=== PATIENT | male | born 1945 | race Caucasian/White ===

== ENCOUNTER 2017-06-22 09:48 | Inpatient (IN) | payer MEDICARE, SELFPAY ==
[2017-06-22] VITALS (11 sets, daily range): BP systolic 120–163; BP diastolic 64–96; PULSE 103–124; RESP 15–25; TEMP 36.9–37.7; O2SAT 95–97; BMI 28.1; BMI 30.1
--- NOTE | 2017-06-22 10:12 | CT_ITS ---
STUDY: CT ABDOMEN AND PELVIS WITH CONTRAST REASON FOR EXAM: Male, 71 years old. Suprapubic swelling, difficulty voiding, diarrhea RADIATION DOSAGE (If Supplied By Facility): CTDIvol = ( 20.85 ) mGy, DLP = ( 2991.93 ) mGycm TECHNIQUE: Transaxial images were obtained from the dome of the diaphragm to the symphysis pubis with oral contrast. 100mL ml of Isovue 300 contrast was administered. Sagittal and coronal images were reconstructed. Individualized dose optimization techniques were used for this CT. COMPARISON: None. FINDINGS: The visualized lung bases are unremarkable. The visualized portions of the heart are within normal limits. There is decreased attenuation of the liver consistent with steatosis. Normal gallbladder and extrahepatic biliary system. There is mild splenomegaly. Normal pancreas. Normal bilateral adrenal glands. Normal right kidney. Normal left kidney. There are bilateral extrarenal pelves. Normal visualized stomach. Normal small intestine. There is thickening to the wall of the rectum. The appendix is visualized and appears normal. There is diffuse atherosclerotic calcification of the abdominal aorta, without a demonstrated aneurysm. Normal inferior vena cava. There is retroperitoneal lymphadenopathy with enlarged nodes greater than 10-15mm in the short axis. There is adenopathy along both iliac chains extending into the inguinal regions. The bladder wall is thickened. There is a calcification within the wall of the bladder on the left side. There are small bladder calculi. There is a small umbilical hernia containing fat. There are diffuse degenerative changes of the visualized lumbar spine. There is some thickening to the soft tissues of the scrotum. CT/Abdomen/Pelvis WITH Contrast IMPRESSION: There is pelvic, inguinal, and retroperitoneal adenopathy. Underlying malignancy cannot be excluded. Tissue sampling may be beneficial. The bladder wall is thickened. There is thickening of the rectal wall. This can be correlated with endoscopy. No bowel obstruction or acute renal pathology. Electronically Signed: Luis E Hoffman DO at 12:49 EST Tel , Service support ,
--- NOTE | 2017-06-22 10:24 | ED.VISSUMM ---
- ER Visit Summary Date of Service: 06/22/17 Chief Complaint: Abdominal pain History of Present Illness: The patient is a 71 M with no primary care physician. He reports that he has suprapubic pain and rash that began approximately 1 week ago. He describes the pain as tender is 5 out of 10 currently and 8 out of 10 at worst. It is increased with movement. He denies any nausea or vomiting. Reports he has had diarrhea approximately 4 times a day for the past month. No blood in his stools or black tarry stools. He has not been on antibiotics recently, does not drink well water, and has not been camping or out of the country. On review of systems patient complains subjective fever, chills, and cold sweats. He has a chronic cough that is unchanged. He has had dysuria without frequency and feels as though he is emptying his bladder well. Physical Examination: Vitals: 98.5, 163/96, 124, 15, 88% on room air which is hypoxic. General: Well-nourished and well-developed. Head: Normocephalic atraumatic. Neck: Supple, no lymphadenopathy. No JVD. Nontender. Cardiovascular: Regular rate and rhythm. No murmurs. Respiratory: No respiratory distress. Clear to auscultation bilaterally. Abdominal: Soft, moderate suprapubic tenderness to palpation, nondistended, normal bowel sounds. No guarding, rebound, or peritoneal signs. Erythema in the suprapubic area that extends over the scrotum. This is tender to palpation Back: Nontender. Extremities: Nontender, no edema. Skin: Normal color, no rash. Neurologic: Alert and oriented ?3. Cranial nerves II through XII are intact. Normal strength and sensation. Psych: Normal affect. Test Results: Chest x-ray is normal. CT the abdomen pelvis. IV contrast shows a normal appendix. There is thickening of the wall of the rectum and retroperitoneal adenopathy. There is not a comment about a suprapubic abscess or cellulitis. CBC is remarkable for a white count of 32.2 with 92 segmented neutrophils and 4 lymphocytes. H&H is 11.6 and 36.3. Chem-7 is marked for sodium 134, chloride of 97, glucose 127. Lactic acid is 1.8. UA has 25-50 white blood cells and 1+ bacteria. Emergency Department Course and Treatment: Patient had an IV placed. He was given a liter bolus of normal saline. He was given morphine and Zofran IV. He was given vancomycin and Zosyn IV. Treatment Plan: Patient was discussed with Dr. Macdonald. He will be admitted to the hospital for further relation and treatment. Disposition: Admitted in serious condition. Impression: 1. Abdominal wall cellulitis. 2. UTI. 3. Sepsis. 4. Hypoxia. This note was generated with [employer] dictation software. It may contain incorrect words, spelling, and punctuation that were not noted in review of the chart prior to signing ED Disposition - Plan for ED Patient: Disposition: Acute Care [facility] Chief Complaint: Diarrhea
[2017-06-22] MEDS: Ondansetron 4 MG/2 ML Vial IV (10:29)
[2017-06-22] MEDS: 0.9% Normal Saline 1,000 ML 1000 ML IV (10:29)
--- NOTE | 2017-06-22 10:39 | RAD_ITS ---
STUDY: X-RAY CHEST REASON FOR EXAM: Male, 71 years old. Cough. Lower abdominal pain. TECHNIQUE: Single AP portable view of the chest. COMPARISON: None. FINDINGS: The lungs are clear and expanded. There is no demonstrated pleural abnormality. Normal size heart. Normal mediastinum and seth. Normal visualized pulmonary arteries. Normal visualized aortic arch and descending thoracic aorta. Normal visualized thoracic spine. Normal visualized ribs, clavicles, and shoulders. There is no demonstrated abnormality of the visualized soft tissue structures of the upper abdomen. RAD/Chest 1 View (Portable) IMPRESSION: Normal x-ray examination of the chest. Electronically Signed: Gasper Saavedra MD at 11:09 EST Tel [phone], Service support ,
[2017-06-22 10:50] LABS: Anion Gap 8 (5-15); BUN 14 mg/dL (7-18); BUN/Creat Ratio 14.6 RATIO (10-20); Calcium,Total 8.5 mg/dL (8.5-10.1); Chloride 97 mmol/L (98-107); Creatinine, Serum 0.96 mg/dL (0.70-1.30); EST Glomerular Filtration Rate 82 mL/min (>60); Est Glom Filt Rate - Afr Amer 100 mL/min (>60); Estimated Creatinine Clearance 73.93 ml/min; Glucose 127 mg/dL (74-106); Potassium 3.6 mmol/L (3.5-5.1); Sodium Level 134 mmol/L (136-145)
[2017-06-22 10:51] LABS: Absolute Lymphocyte Count 1.29 X10^3/ul (0.83-4.51); Absolute Neutrophil Count 29.5 X10^3/uL (2.0-7.7); Basophil# 0.02 X10^3/uL; Basophil% 0.1 % (0-1); Hematocrit 36.3 % (40-54); Hemoglobin 11.6 g/dl (13.0-16.5); Lymphocyte # 1.29 X10^3/ul (4.0); Mean Corpuscular Hgb 25.8 pg (27.0-32.0); Mean Corpuscular Volume 80.8 fL (80-94); Mean Platelet Vol. 8.9 fl (6.2-12.0); Neutrophil # 29.49 X10^3/uL (2.7-7.7); Neutrophil % 91.5 % (47-70); Platelet Count 374 K/mm3 (150-450); RBC Distribution Width CV 14.3 % (11.6-14.6); RBC Distribution Width SD 41.6 fl (35.1-43.9); Red Blood Count 4.49 M/mm3 (4.6-6.2)
[2017-06-22 10:52] LABS: Differential Indicated SCAN CRITERIA MET; POSITIVE COUNT YES; POSITIVE DIFFERENTIAL YES; POSITIVE MORPHOLOGY NO
[2017-06-22 10:55] LABS: White Blood Count 32.2 K/mm3 (4.4-11.0)
--- NOTE | 2017-06-22 10:56 | ED.RN ---
pt has redness warmth and firmness in groin area. areas spreads from leg to leg and under scrotum. per pt difficulty urinating at times
--- NOTE | 2017-06-22 10:56 | ED.RN ---
LAB CALL WITH CRITICAL WBC VALUE 32.2. VERBALLY COMMUNICATED TO MIRNA QUIROZ AND DR. WANG.
[2017-06-22 10:59] LABS: Lactic Acid 1.8 mmol/L (0.4-2.0)
[2017-06-22 11:14] LABS: Differential Comment SCANNED
[2017-06-22 12:06] LABS: Mucous, Urine 0 SEEN /hpf (<or=2+)
[2017-06-22 12:09] LABS: Color, Urine Yellow (Yellow); Glucose, Dipstick Normal (Normal); Ketone-Dipstick Negative (Negative); Leukocyte Esterase-Dipstick 500 /ul (Negative); Nitrite-Dipstick Negative (Negative); Occult Blood-Urine 25 /ul (Negative); Protein-Dipstick 30 mg/dl (Negative); Urine Bilirubin Dipstick Negative (Negative); Urine Clarity Sl. Cloudy (Clear); Urine Urobilinogen 1 mg/dl (Normal)
[2017-06-22 12:23] LABS: Bacteria 1+ /hpf (None Seen); Red Blood Cells-Urine 0-5 SEEN /hpf (0-5); Squamous Epithelial Cells - UA 0-5 SEEN /hpf (0-5); White Blood Cells 25-50 SEEN /hpf (0-5)
--- NOTE | 2017-06-22 13:20 | ED.RN ---
john called and said that dr bradley will be down to see pt he just got here
--- NOTE | 2017-06-22 14:17 | PCM.HP.STD ---
Problem List (1) Lower abdominal pelvic wall cellulitis Status: Acute (2) Rectal prolapse Status: Acute (3) Altered bowel habits Status: Acute (4) Hypertension Status: Chronic Qualifiers: Hypertension type: essential hypertension Qualified Code(s): I10 - Essential (primary) hypertension Comment: Undiagnosed History of Present Illness Date of Admission: 06/22/17 Chief Complaint: Lower abdominal wall cellulitis and alteration of bowel habit The patient is a 71 year old M with no known significant past medical history, no PCP or recent Dr. follow-up came to ER with lower abdominal wall redness, pain, alteration of bowel habit. The patient has history of constipation and diarrhea for more than 1 month. For last 3- 4 days he started having swelling of the groin region including swelling of scrotum and penis and redness started spreading to the lower abdominal wall and pelvic wall. He denies GI bleed. He further had fever, chills or diaphoresis. In the ER he was found to have tachycardia, hypoxia, tachypnea and hypoxia, pulse ox 95% on 2 L of oxygen. Patient has leukocytosis with left shift. The patient had CT abdomen which shows thickened bladder wall, thickening of rectal wall but no bowel obstruction or acute renal pathology. [] Past Medical History Past Medical History (Chronic Problems): Chronic Problems Hypertension (Chronic) Undiagnosed Allergies No Known Allergies Allergy (Verified 06/22/17 09:50) Smoking Status: Never smoker - *Family History Paternal History Items: No pertinent history Review of Systems Constitutional: Reports: Chills, Fever, Weakness. Denies: Weight Change HEENT: Denies: Head Aches, Sinus Congestion, Sinus Drainage Cardiovascular: Denies: Chest Pain, Palpitations Respiratory: Denies: Cough, Shortness of breath at rest, Sputum production Gastrointestinal: Reports: -. Denies: Abdominal Pain, Nausea, Vomiting Genitourinary: Reports: -. Denies: Dysuria Musculoskeletal: Denies: Joint Pain, Joint Tenderness Skin: Denies: Rash, Wounds Neurological: Denies: Numbness, Tingling, Focal weakness Psychiatric: Denies: Anxiety, Depression, Homicidal Ideations, Suicidal Ideations Hematologic/ Lymphatic: Denies: Easy Bruising, Easy Bleeding VTE Information - Inpt Only VTE Present on Admission: No VTE Mechan Device Prophylaxis: SCD's VTE Pharm Prophylaxis ordered?: Yes Patient Problems: Active and Suspected Problems Lower abdominal pelvic wall cellulitis (Acute) Rectal prolapse (Acute) Altered bowel habits (Acute) - Physical Exam General: Alert, Oriented x3, Cooperative HEENT: Atraumatic, PERRLA, EOMI, Normocephalic Neck: Supple, No JVD, Negative Carotid Bruits Lungs: Clear to auscultation, No rhonchi, No wheeze, No rales, Diminished Cardiovascular: Regular Rhythm, Normal S1, Normal S2, No murmurs, Tachycardic Abdomen: Bowel Sounds Present, Soft, Non Tender, Non-Distended, - - Tenderness and swelling of scrotum and penis. On rectal exam, about 2 cm of circumferential rectal prolapse, mucosa thickened, no bruise or aberrant ulcer or bleeding. Anal canal lumen was tight and closed and could not insert small finger Extremities: Capillary Refill Less than 3 Seconds, Edema Skin: Rash Present - Erythematous rash present over perineal region including scrotal, penis, lower abdominal and pelvic wall with induration and tenderness. Musculoskeletal: No Tenderness to Palpation of Joints or Extremities Neurological: Cranial nerves II-XII grossly intact Psych/Mental Status: Normal Affect, Appropriate Vital Signs Temp Pulse Resp BP Pulse Ox 98.5 F 112 H 25 H 123/91 H 95 06/22/17 09:50 06/22/17 12:42 06/22/17 12:42 06/22/17 12:42 06/22/17 12:42 Oxygen Flow Rate 2 Oxygen Delivery Method Nasal Cannula Weight: 196 lb Body Mass Index (BMI) 28.1 Laboratory Tests Past 24 Hrs 06/22/17 06/22/17 06/22/17 10:24 10:24 10:24 WBC 32.2 H* RBC 4.49 L Hgb 11.6 L Hct 36.3 L MCV 80.8 MCH 25.8 L MCHC 32.0 RDW 14.3 RDW Differential 41.6 Plt Count 374 MPV 8.9 Immature Gran % (Auto) 0.400 Neut % (Auto) 91.5 H Lymph % (Auto) 4.0 L Glasscock % (Auto) 4.0 Eos % (Auto) 0.0 Baso % (Auto) 0.1 Absolute Neuts (auto) 29.5 H Absolute Lymphs (auto) 1.29 Total Counted Not Reportable Differential Comment SCANNED Diff Path Review May foll Sodium 134 L Potassium 3.6 Chloride 97 L Carbon Dioxide 29.0 Anion Gap 8 BUN 14 Creatinine 0.96 Estim Creat Clear Calc 73.93 Est GFR (MDRD) Af Amer 100 Est GFR (MDRD) Non-Af 82 BUN/Creatinine Ratio 14.6 Glucose 127 H Lactic Acid 1.8 Calcium 8.5 Urine Color Urine Clarity Urine pH Ur Specific [place] Urine Protein Urine Glucose (UA) Urine Ketones Urine Occult Blood Urine Nitrite Urine Bilirubin Urine Urobilinogen Ur Leukocyte Esterase Urine RBC Urine WBC Ur Squamous Epith Cells Urine Bacteria Urine Mucus 06/22/17 12:00 WBC RBC Hgb Hct MCV MCH MCHC RDW RDW Differential Plt Count MPV Immature Gran % (Auto) Neut % (Auto) Lymph % (Auto) Glasscock % (Auto) Eos % (Auto) Baso % (Auto) Absolute Neuts (auto) Absolute Lymphs (auto) Total Counted Differential Comment Diff Path Review Sodium Potassium Chloride Carbon Dioxide Anion Gap BUN Creatinine Estim Creat Clear Calc Est GFR (MDRD) Af Amer Est GFR (MDRD) Non-Af BUN/Creatinine Ratio Glucose Lactic Acid Calcium Urine Color Yellow Urine Clarity Sl. Cloudy Urine pH 7.0 Ur Specific [place] 1.010 Urine Protein 30 H Urine Glucose (UA) Normal Urine Ketones Negative Urine Occult Blood 25 H Urine Nitrite Negative Urine Bilirubin Negative Urine Urobilinogen 1 H Ur Leukocyte Esterase 500 H Urine RBC 0-5 SEEN Urine WBC 25-50 SEEN Ur Squamous Epith Cells 0-5 SEEN Urine Bacteria 1+ Urine Mucus 0 SEEN Assessment/Plan Active and Suspected Problems Lower abdominal pelvic wall cellulitis (Acute) Rectal prolapse (Acute) Altered bowel habits (Acute) The patient is a 71 year old M with no known significant past medical history, no PCP or recent Dr. follow-up came to ER with lower abdominal wall redness, pain, alteration of bowel habit. The patient has history of constipation and diarrhea for more than 1 month. For last 3- 4 days he started having swelling of the groin region including swelling of scrotum and penis and redness started spreading to the lower abdominal wall and pelvic wall. He denies GI bleed. He further had fever, chills or diaphoresis. In the ER he was found to have tachycardia, hypoxia, tachypnea and hypoxia, pulse ox 95% on 2 L of oxygen. Patient has leukocytosis with left shift. UA suggestive of pyuria, leukocyte esterase positive. The patient had CT abdomen which shows thickened bladder wall, thickening of rectal wall but no bowel obstruction or acute renal pathology. [] 1. SIRS with sepsis due to lower abdominal wall/pelvic wall and perineal/groin cellulitis, possible UTI and proctitis: Urine culture is being ordered. The patient is admitted in PCU. Started on broad-spectrum IV antibiotic vancomycin and Zosyn to cover gram-positive cocci, gram-negative and anaerobes. Blood cultures ?2, urine culture ordered. General surgery, Dr. Cagle consulted and discussed with him. As the patient has rectal prolapse, rectal wall thickening on CT, will need colonoscopy when more stable. 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 Consult ID for severe infection as mentioned above. On clear liquid diet because patient probably might need colonoscopy. LFT/PT/INR, CRP ordered. 2. UTI and proctitis. On CT image rectal wall thickening raises suspicion of neoplasm. Rest as mentioned above 3. Patient also has history of smoking, raises suspicion of COPD, high blood pressure possible undiagnosed hypertension: Patient does not have PCP and has not seen a doctor for many years. On nicotine patch. Monitor blood pressure, if needed can start antihypertensive medications. manager of planning consult further to establish PCP at the time of discharge. VT prophylaxis: On Lovenox 40 mg subcu daily and bilateral SCDs. Code Visit Inpatient E&M: 05882 Init Hosp L3
[2017-06-22] MEDS: 0.9% Normal Saline 1,000 ML 150 ML IV (16:00)
--- NOTE | 2017-06-22 16:10 | CON.PCM_ITS ---
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 Reason for Consult History of Present Illness: The patient is a 71 year old M [] Past Medical History Past Medical History (Chronic Problems): Chronic Problems Hypertension (Chronic) Undiagnosed Allergies No Known Allergies Allergy (Verified 06/22/17 09:50) Home Medications: Ambulatory Orders Medication Instructions Recorded NK [NK] 06/22/17 - Physical Exam Vital Signs Temp Pulse Resp BP Pulse Ox 99.8 F H 103 H 20 H 130/70 H 96 06/22/17 16:08 06/22/17 16:08 06/22/17 16:08 06/22/17 16:09 06/22/17 16:08 Oxygen Flow Rate 2 Oxygen Delivery Method Nasal Cannula Weight: 210 lb Body Mass Index (BMI) 30.1 Assessment/Plan Subjective: Patient states that he has had increasing redness and discomfort in his testicles which is dramatically increased over the last 24 hours. His workup in the emergency department shows increased lymphadenopathy bladder wall thickening rectal wall thickening. Objective: Patient is tachycardic Patient has significant cellulitis involving the entire scrotum extending up into the suprapubic area. He has swelling of his foreskin. His testicles are very tender to touch. I do not see any blackened areas here. 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 2. Eric's gangrene Plan: Dr. Juarez is going to be consulted for emergent surgical evaluation tonight for Eric's gangrene I have spoken to and he will be contacting him personally. With regards to the hard mass in the perianal area he is going to have to have a colonoscopy at some point as well as an exam under anesthesia and biopsy of this mass. Obviously the most pressing thing here is to determine whether or not he needs surgical evaluation tonight with regards to his Eric's gangrene. <Filomena Whitfield - Last Filed: 06/23/17 11:11> Problem List (1) Rectal prolapse Status: Acute Reason for Consult Date of Consultation: 06/22/17 Reason for Consultation: Rectal mass History of Present Illness: The patient is a 71 year old M who presents with scrotal pain, change in bowel habits, and pelvic, scrotal, and penile redness. Patient notes for over 1 month he had a fluctuation watery stools and constipation. Patient noted he was constipation for 6 days and the last 2 days he had diarrhea. Patient denies BRB , melena, abdominal pain/discomfort. He has never had a colonoscopy. He denies family history of colon cancer. Patient notes decreased appetite for the last 3 days. He notes having a fever and chills at home, however he never took his temperature. He notes occasionally taking aspirin for a headache otherwise he takes no routine medications. He denies previous history of M.I., stroke, blood clots. He denies previous abdominal surgeries. He notes slight burning with urination. He notes swelling, erythema of the pelvis for the last week. Patient' s noted the patient has lost over 20 punds within the last month. CT scan of the abdomen/pelvis demonstrated bladder wall thickening, thickening of the rectal wall, pelvic, inguinal and retroperitoneal adenopathy. Past Medical History Allergies No Known Allergies Allergy (Verified 06/22/17 09:50) Surgical History: no surgical history Psychiatric History: No pertinent psych hx Lives: Spouse/ Significant Other Smoking Status: Former smoker - *Family History Paternal History Items: No pertinent history Review of Systems Constitutional: Reports: Anorexia, Chills, Fever, Malaise, Weight Change, Fatigue HEENT: Denies: Head Aches, Sinus Congestion, Sinus Drainage Cardiovascular: Denies: Chest Pain, Palpitations Respiratory: Reports: Shortness of breath at rest Gastrointestinal: Reports: Constipation, Diarrhea. Denies: Abdominal Pain, Hematemesis, Hematochezia, Nausea, Melena, Vomiting Genitourinary: Reports: Dysuria Musculoskeletal: Denies: Joint Pain, Joint Tenderness Skin: Denies: Rash, Wounds Neurological: Denies: Numbness, Tingling, Focal weakness Psychiatric: Denies: Anxiety, Depression, Homicidal Ideations, Suicidal Ideations Hematologic/ Lymphatic: Reports: Anemia - Physical Exam General: Alert, Oriented x3, Cooperative HEENT: Atraumatic, PERRLA, EOMI, Normocephalic Neck: Supple, No JVD, Negative Carotid Bruits Lungs: Clear to auscultation, Normal air movement Cardiovascular: No murmurs, Tachycardic Abdomen: Bowel Sounds Present, Soft, Non Tender, - - Severe erythema at the scrotum, penis, and into the pelvis and bilteral thighs. Severely tender scrotum and testicles. Palpable lymph node left groin. Rectum- mass noted. No prolapse noted. Extremities: No edema, Capillary Refill Less than 3 Seconds Skin: - - Severe cellulitis and erythema noted pelvis, scrotum, and penis into inner thighs Musculoskeletal: No Tenderness to Palpation of Joints or Extremities Neurological: Cranial nerves II-XII grossly intact Psych/Mental Status: Normal Affect, Appropriate Vital Signs Temp Pulse Resp BP Pulse Ox 98.5 F 103 H 22 H 132/70 H 96 06/22/17 09:50 06/22/17 15:02 06/22/17 15:02 06/22/17 15:02 06/22/17 15:02 Oxygen Delivery Method Room Air Weight: 210 lb Body Mass Index (BMI) 30.1 Assessment/Plan I have been consulted in conjunction with Dr. Cagle for possible rectal prolapse. Impression: Rectal mass. Severe cellulitis of the pelvis. Eric's gangrene. Plan: Discussed patient with Dr. Cagle. Urology will need to be consulted urgently for evaluation of the Eric's gangrene and urgent surgical management. At some point the patient will also need to have a biopsy of the rectal mass and colonoscopy. 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 Dr. Cagle will discuss patient with the hospitalist. Patient may need transferred for extensive debridement and possible reconstruction for Eric's gangrene. Thank you for allowing us to participate in this patient's care. My recommendations will be available via electronic medical records.
--- NOTE | 2017-06-22 17:07 | PCM.CONS.U ---
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 Reason for Consult Date of Consultation: 06/22/17 Reason for Consultation: Eric's gangrene History of Present Illness: The patient is a 71 year old Male admitted today with a bright red scrotum with severe Eric's gangrene that spreading up to his anterior abdomen and spreading to his thighs. Clinically stable but at this point because of the severe infection he may require extensive debridement I would recommend transfer to a tertiary care center for further care Past Medical History Past Medical History (Chronic Problems): Chronic Problems Hypertension (Chronic) Undiagnosed Allergies No Known Allergies Allergy (Verified 06/22/17 09:50) Home Medications: Ambulatory Orders Medication Instructions Recorded NK [NK] 06/22/17 Surgical History: noncontributory Psychiatric History: No pertinent psych hx Smoking Status: Former smoker Tobacco Use: Non-smoker Drugs: None - *Family History Paternal History Items: No pertinent history Review of Systems Constitutional: Reports: Chills, Fever HEENT: Denies: Head Aches, Sinus Congestion, Sinus Drainage Cardiovascular: Denies: Chest Pain, Palpitations Respiratory: Denies: Cough, Shortness of breath at rest, Sputum production Gastrointestinal: Denies: Abdominal Pain, Nausea, Vomiting Genitourinary: Denies: Dysuria Psychiatric: Denies: Anxiety, Depression, Homicidal Ideations, Suicidal Ideations Physical Exam - Physical Exam Vital Signs Temp 99.8 F H 06/22/17 16:08 Pulse 103 H 06/22/17 16:08 Resp 20 H 06/22/17 16:08 BP 130/70 H 06/22/17 16:09 Pulse Ox 96 06/22/17 16:08 Intake & Output 06/20/17 06/21/17 06/22/17 23:59 23:59 23:59 Weight: 95.254 kg General: Alert, Oriented x3 HEENT: Atraumatic Oral: Moist Mucosa Neck: Supple Lungs: Normal air movement Abdomen: Soft Rectal: Exam deferred - Patient by Center from the ER where the Mitek failure orally his scrotum is bright red is got red erythema component to the abdomen and onto the thighs Skin: No rashes Musculoskeletal: No Tenderness to Palpation of Joints or Extremities Lymphatic: No Cervical, Supraclavicular, or Inguinal Adenopathy Neurological: Cranial nerves II-XII grossly intact Psych/Mental Status: Normal Affect - He will Assessment/Plan Active and Suspected Problems Lower abdominal pelvic wall cellulitis (Acute) Rectal prolapse (Acute) Altered bowel habits (Acute) 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 71-year-old male admitted to the hospital to the hospitalist service prior to consultation with urology. 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 Will talk to the hospitalist service and let them know that at this point will not offer any surgical intervention and the patient as I think he needs to be transferred to a tertiary care center for further care.
[2017-06-22] MEDS: Enoxaparin 40 MG/0.4 ML Syringe SC (17:23)
[2017-06-22 17:51] LABS: International Normalized Ratio 1.6; Prothrombin Time (Protime)PT. 18.1 SECONDS (11.7-14.9)
[2017-06-22 18:15] LABS: AST(SGOT) 14 U/L (15-37); Alanine Aminotransfer ALT/SGPT 15 U/L (16-61); Albumin, Serum 2.1 g/dL (3.2-5.0); Alkaline Phosphatase 36 U/L (45-117); Globulin 3.9 g/dL (2.2-4.2)
[2017-06-22 18:23] LABS: Lactic Acid 1.5 mmol/L (0.4-2.0)
--- NOTE | 2017-06-22 19:40 | NURSING ---
Report called to MIRNA Butt at [facility].
[2017-06-22 20:19] LABS: M R Staph aureus DNA By PCR Negative (Negative); Probe Check PASS; Specimen Processing Control PASS
[2017-06-24 15:01] LABS: Pathologist Review Reviewed
== END 2017-06-22 19:55 | disposition short-term general hospital (02) | DRG 871 ==
LOC: ED 10:43 → PCU 14:21
PROVIDERS: Admitting Provider Internal Medicine; Emergency Provider Emergency Medicine; Visit Provider Internal Medicine
DX: A41.9 Sepsis, unspecified organism (principal); M72.6 Necrotizing fasciitis; K62.9 Disease of anus and rectum, unspecified; N49.3 Fournier gangrene
CPT/HCPCS: 71045; 74177; 80048; 80076; 81001; 83605; 85025; 85610; 86140; 87040; 87086; 87088; 87493; 87641; 94762; 99285; J7030; J7040; J7050; Q9967; A4216; J2405

== ENCOUNTER 2018-10-11 23:20 | Inpatient (IN) | payer MEDICARE, SELFPAY ==
[2018-10-11 23:23] VITALS: BP 115/50; PULSE 95; RESP 19; TEMP 37.1; O2SAT 93
[2018-10-11 23:24] VITALS: BP 145/77; PULSE 114; RESP 16; TEMP 38.3; O2SAT 99; BMI 22.8
--- NOTE | 2018-10-11 23:46 | RAD_ITS ---
STUDY: X-RAY CHEST REASON FOR EXAM: Male, 72 years old. Recent fall. TECHNIQUE: Single AP portable view of the chest. COMPARISON: June 22, 2017 FINDINGS: Right-sided Mediport catheter is visible with the tip of the catheter in the superior vena cava. The lungs are clear and expanded. The curvilinear lucencies in the left chest are probably skin folds that mimic pneumothorax. There is no demonstrated pleural abnormality. There is borderline cardiomegaly. Normal mediastinum and seth. There is prominence of the pulmonary hilar arteries without peripheral pulmonary vascular congestion, suggesting pulmonary hypertension. There is atherosclerotic calcification of the aortic arch with tortuosity. There are diffuse degenerative changes of the visualized thoracic spine. There are mild degenerative changes of both shoulders. There is no demonstrated abnormality of the visualized soft tissue structures of the upper abdomen. RAD/Chest 1 View (Portable) IMPRESSION: No radiographic evidence of acute cardiopulmonary disease. Electronically Signed: Danna Seymour MD at 0:14 EDT , Service support ,
--- NOTE | 2018-10-11 23:52 | ED.DCSUM_ITS ---
- ER Visit Summary Date of Service: 10/11/18 Chief Complaint: Fall, injury to right arm and leg History of Present Illness: The patient is a 72 M who presents after a fall. He states he was in the bathroom and tripped on his slippers and fell and injured his right knee/lower leg as well as his right elbow and forearm. Denies any head trauma or LOC. He sustained skin tears to his knee and arm. His brought him in to get evaluated. The patient currently has colon and Rectal cancer. He has been getting chemotherapy with his last treatment being last month. states that he has been more weak over the past month but the patient adamantly denies this. No fevers at home. Physical Examination: Vital signs reviewed. Temperature is 100.9 ?F here. Heart rate 114. HEENT exam is atraumatic. Heart is tachycardic and regular without murmurs. Lungs are clear bilaterally. Abdomen is soft and nontender. He has a suprapubic catheter and a colostomy. Extremities reveal no tenderness. He has skin tears on the right knee, elbow and forearm which are not bleeding at this time. His GCS is 15. His neurologic exam is normal. Test Results: Chest x-ray reveals no evidence of any abnormalities. Laboratory studies and urinalysis are pending Emergency Department Course and Treatment: Patient skin tears will be cleansed. I do not feel requires any x-rays of his extremities as he denies any pain. His tetanus is up-to-date. Due to his fever I did obtain x-ray and labs. His chest x-ray is negative. Laboratory studies and urinalysis are still pending. He will be signed out the oncoming doctor for reevaluation and disposition. Treatment Plan: [] Disposition: Pending Impression: Skin tears, right arm and knee This note was generated with Kera[employer]ST dictation software. It may contain incorrect words, spelling, and punctuation that were not noted in review of the chart prior to signing <Jose A Ireland - Last Filed: 10/12/18 00:19> - ER Visit Summary Date of Service: 10/12/18 Patient was signed out to me pending laboratory evaluation. CBC returned with a white count of 25.4 and 88% neutrophils. Chemistry studies reveal a sodium of 133. LFTs reveal an ALT of 87, AST 158, alk phos 229. Urinalysis returns to 10-25 white cells with rare bacteria. Lactate is normal at 1.4. I was able to review some of the patient's prior laboratory work-up from [facility] through [facility]. It appears the patient was seen last week and had a white count of 21 was found to have a UTI. He was placed on Levaquin. states that that antibiotic is done. It does appear when comparing to prior labs that his LFTs have been slowly climbing. does state that he has been complaining of some abdominal pain although did not have abdominal pain on exam at this time. CT flank was obtained reveals multiple liver masses that are new when compared to prior study from May 2017. There is thickening of the urinary bladder. There is a large rectal and perianal mass. Ascites is noted. These imaging results are discussed with at bedside. She states that the oncologist at [place] has not mentioned to her any spread to the liver. Patient and would prefer to be admitted to [facility] where his specialist are available. I called [facility] with the only meds they have available currently are ICU. I asked if I could speak with the oncologist to find out more about the patient's history and care, but I am told that oncology does not take call at night. The patient's would typically be admitted to the hospitalist and oncology would not be notified until morning. At this time my best option is to admit the patient here for fluids and IV antibiotics. He has already been given a dose of IV Rocephin. His oncologist will need to be contacted first thing in the morning when they are available to further discuss his care and potential transfer as a bed is available. Disposition: Admit Impression: 1. Skin tears right arm and knee 2. Leukocytosis 3. UTI with failed outpatient management 4. Liver mets This note was generated with KeraFAST dictation software. It may contain incorrect words, spelling, and punctuation that were not noted in review of the chart prior to signing <Debbie Forman - Last Filed: 10/12/18 05:13> ED Disposition <Jose A Ireland - Last Filed: 10/12/18 00:19> <Debbie Forman - Last Filed: 10/12/18 05:13> - Plan for ED Patient: Referrals: Care Physician,No Primary [Primary Care Provider] -
[2018-10-12] VITALS (14 sets, daily range): BP systolic 95–137; BP diastolic 39–72; PULSE 79–96; RESP 15–20; TEMP 36.6–37.6; O2SAT 93–97; BMI 22.1
[2018-10-12 00:20] LABS: Absolute Lymphocyte Count 0.96 X10^3/ul (0.83-4.51); Absolute Neutrophil Count 22.4 X10^3/uL (2.0-7.7); Basophil# 0.02 X10^3/uL; Basophil% 0.1 % (0-1); Eosinophil# 0.04 X10^3/uL; Eosinophils% 0.2 % (0-5); Hematocrit 32.7 % (40-54); Hemoglobin 10.2 g/dl (13.0-16.5); Lymphocyte # 0.96 X10^3/ul (4.0); Lymphocyte % 3.8 % (19-41); Mean Corp Hgb Conc 31.2 g/gl (32-36); Mean Corpuscular Hgb 25.8 pg (27.0-32.0); Mean Corpuscular Volume 82.8 fL (80-94); Mean Platelet Vol. 8.4 fl (6.2-12.0); Monocyte# 1.83 X10^3/uL; Monocyte% 7.2 % (0-10); Neutrophil % 88.3 % (47-70); Platelet Count 273 K/mm3 (150-450); RBC Distribution Width CV 16.3 % (11.6-14.6); RBC Distribution Width SD 48.2 fl (35.1-43.9); Red Blood Count 3.95 M/mm3 (4.6-6.2); White Blood Count 25.4 K/mm3 (4.4-11.0)
[2018-10-12 00:21] LABS: Differential Indicated SCAN CRITERIA MET; POSITIVE COUNT NO; POSITIVE DIFFERENTIAL YES; POSITIVE MORPHOLOGY NO
[2018-10-12 00:32] LABS: ALB/GLOB Ratio 0.5 RATIO (0.9-2.4); AST(SGOT) 158 U/L (15-37); Alanine Aminotransfer ALT/SGPT 81 U/L (16-61); Albumin, Serum 2.1 g/dL (3.2-5.0); Alkaline Phosphatase 229 U/L (45-117); Anion Gap 9 (5-15); BUN 10 mg/dL (7-18); Calcium,Total 8.5 mg/dL (8.5-10.1); Chloride 96 mmol/L (98-107); Creatinine, Serum 0.67 mg/dL (0.70-1.30); EST Glomerular Filtration Rate 124 mL/min (>60); Est Glom Filt Rate - Afr Amer 151 mL/min (>60); Globulin 4.5 g/dL (2.2-4.2); Glucose 101 mg/dL (74-106); Potassium 3.9 mmol/L (3.5-5.1); Protein, Total 6.6 g/dL (6.4-8.2); Sodium Level 133 mmol/L (136-145)
[2018-10-12 01:42] LABS: Mucous, Urine 0 SEEN /hpf (<or=2+); Squamous Epithelial Cells - UA 0 SEEN /hpf (0-5)
[2018-10-12 01:44] LABS: Color, Urine Yellow (Yellow); Glucose, Dipstick Normal (Normal); Ketone-Dipstick Negative (Negative); Leukocyte Esterase-Dipstick 500 /ul (Negative); Nitrite-Dipstick Negative (Negative); Occult Blood-Urine 150 /ul (Negative); Protein-Dipstick 30 mg/dl (Negative); Urine Bilirubin Dipstick Negative (Negative); Urine Clarity Sl. Cloudy (Clear); Urine Urobilinogen Normal (Normal); Urine pH 6.5 (5.0 - 8.0)
[2018-10-12] MEDS: oxyCODONE 5 MG Tablet 10 MG PO ×4 (02:14→21:04)
[2018-10-12 02:17] LABS: Bacteria RARE /hpf (None Seen); Red Blood Cells-Urine 0-5 SEEN /hpf (0-5); White Blood Cells 10-25 SEEN /hpf (0-5)
[2018-10-12 02:25] LABS: Lactic Acid 1.4 mmol/L (0.4-2.0)
--- NOTE | 2018-10-12 02:39 | CT_ITS ---
STUDY: CT ABDOMEN AND PELVIS WITH CONTRAST REASON FOR EXAM: Male, 72 years old. Abdominal pain and elevated white count. Patient has been treated for colon cancer, prostate cancer and rectal cancer. RADIATION DOSAGE (If Supplied By Facility): CTDIvol = ( 13.15 ) mGy, DLP = ( 890.74 ) mGycm TECHNIQUE: Transaxial images were obtained from the dome of the diaphragm to the symphysis pubis without oral contrast. 100 ml of IV Isovue 370 was administered. Sagittal and coronal images were reconstructed. Individualized dose optimization techniques were used for this CT. COMPARISON: CT abdomen and pelvis dated June 22, 2017. FINDINGS: The visualized lung bases are unremarkable. The visualized portions of the heart are within normal limits. There are multiple masses within the liver measuring up to 2.4 cm in greatest dimension. The masses are scattered throughout the liver. The smallest nodule measures less than a centimeter in size. Normal gallbladder and extrahepatic biliary system. There is moderate splenomegaly. The spleen measures up to 16.6 cm in greatest dimension. There is diffuse atrophy of the pancreas. There appears to be a small left adrenal nodule measuring up to 2.4 cm in greatest dimension. The right adrenal gland has a normal appearance. Both kidneys have prominent renal pelves, similar to previous study. This may represent extrarenal pelves. The ureters do not appear dilated. The kidneys otherwise have a normal appearance. There is mild thickening of the gastric esquivel which measure up to 2.4 cm in thickness. There is no evidence for dilated bowel, or pneumoperitoneum. Small bowel has a grossly normal appearance. There appears to be ascites. The enteric contrast is visible in the colon. There appears to be a left lower quadrant colostomy. There is non-visualization of the appendix. There is multifocal atherosclerotic calcification of the abdominal aorta with elongation and tortuosity, but without a demonstrated aneurysm. Normal inferior vena cava. Normal retroperitoneum. The urinary bladder wall is very thickened measuring approximately 1.8 cm. Urinary bladder has a suprapubic catheter. There appears to be a perianal mass like process measuring approximately 5.7 x 4.7 x 5.9 cm in size. There is diffuse abnormal increased attenuation within the superficial soft tissues of the dominant wall suggesting anasarca. Normal osseous structures. CT/Abdomen/Pelvis W IV Cont ONLY IMPRESSION: 1. Multiple liver masses, new since the previous study likely representing metastasis. 2. Diffuse abnormal thickening of the esquivel of the urinary bladder may be treatment related or related to acute or chronic cystitis. 3. A large rectal and perianal mass. 4. Ascites. 5. Anasarca. 6. Splenomegaly. Electronically Signed: Danna Seymour MD at 4:11 EDT , Service support ,
[2018-10-12] MEDS: Ceftriaxone 1 GM/50 ML BAG IV ×2 (03:30→21:04)
--- NOTE | 2018-10-12 04:56 | ED.RN ---
See downtime forms for events from 0200 until now.
--- NOTE | 2018-10-12 04:58 | ED.RN ---
PLEASE SEE COMPUTER DOWN TIME CHARTING FROM [id number] 10/12/18
--- NOTE | 2018-10-12 05:26 | HP.PCM_ITS ---
Problem List (1) Colon cancer metastasized to liver Status: Acute (2) Rectal prolapse Status: Chronic (3) Altered bowel habits Status: Chronic (4) Hypertension Status: Chronic Qualifiers: Comment: Undiagnosed History of Present Illness Date of Admission: 10/12/18 Chief Complaint: generalized weakness The patient is a 72 year old male patient with a significant past medical history of colon cancer diagnosed over a year ago and treated at [facility] presents to the emergency room here in [place] with generalized weakness after a fall. The patient has apparently been treated and released for urinary tract infection at [facility] recently and his last chemotherapy was approximately 1 month ago. Attempts to contact his oncologist overnight have been unsuccessful per [facility] oncology is unavailable at night, they currently have no beds available for transfer his WBC count has been on the rise and is currently 25,000, it was unclear to ER physician whether he had been compliant with outpatient antibiotic therapy. The patient currently has an indwelling suprapubic catheter. CT scan of the abdomen is remarkable for multiple metastatic disease in the liver, and it was unclear if the patient had been made aware of this. As far as we are concerned they are new since prior study. The patient will be admitted to general medical floor, physical therapy evaluation to assess with strengthening and balance, IV antibiotics to treat presumed urinary tract infection and will need to get records and more information from oncology at [facility] when this is feasible. Past Medical History Past Medical History (Chronic Problems): Chronic Problems Rectal prolapse (Chronic) Altered bowel habits (Chronic) Hypertension (Chronic) Undiagnosed Allergies No Known Allergies Allergy (Verified 06/22/17 09:50) Home Medications: Ambulatory Orders Medication Instructions Recorded Docusate Sodium [Colace] 100 mg PO BID 10/11/18 Dronabinol 5 mg PO BID 10/11/18 Oxycodone HCl 10 mg PO Q6H PRN PRN 10/11/18 Tamsulosin HCl [Flomax] 0.4 mg PO QHS 10/11/18 Surgical History: no surgical history Psychiatric History: No pertinent psych hx Smoking Status: Former smoker - *Family History Paternal History Items: No pertinent history Review of Systems Constitutional: Reports: Malaise, Weakness, Fatigue. Denies: Chills, Fever, W eight Change HEENT: Denies: Head Aches, Sinus Congestion, Sinus Drainage Cardiovascular: Denies: Chest Pain, Palpitations Respiratory: Denies: Cough, Shortness of breath at rest, Sputum production Gastrointestinal: Reports: - - rectal pain. Denies: Abdominal Pain, Nausea, Vomiting Genitourinary: Reports: - - has suprpubic catheter. Denies: Dysuria Musculoskeletal: Denies: Joint Pain, Joint Tenderness Skin: Denies: Rash, Wounds Neurological: Denies: Numbness, Tingling, Focal weakness Psychiatric: Denies: Anxiety, Depression, Homicidal Ideations, Suicidal Ideations Hematologic/ Lymphatic: Denies: Easy Bruising, Easy Bleeding VTE Information - Inpt Only VTE Present on Admission: No VTE Mechan Device Prophylaxis: None VTE Pharm Prophylaxis ordered?: Yes Patient Problems: Active and Suspected Problems Colon cancer metastasized to liver (Acute) - Physical Exam General: Alert, Oriented x3, Cooperative, - - frail/weak/cachectic HEENT: Atraumatic, Normocephalic Neck: Supple, Negative Carotid Bruits Lungs: Clear to auscultation, Normal air movement, No rhonchi, No wheeze, No rales Cardiovascular: Regular rate, Normal S1, Normal S2, No murmurs Abdomen: Bowel Sounds Present, Soft, Non Tender, Tender - rectal Extremities: No edema Skin: No rashes Musculoskeletal: No Tenderness to Palpation of Joints or Extremities Neurological: Neuro grossly intact Psych/Mental Status: Normal Affect, Appropriate Vital Signs Temp Pulse Resp BP Pulse Ox 99.7 F H 79 16 104/39 L 96 10/12/18 04:57 10/12/18 04:57 10/12/18 04:57 10/12/18 04:57 10/12/18 04:57 Oxygen Delivery Method Room Air Weight: 158 lb 15.253 oz Body Mass Index (BMI) 22.8 Laboratory Tests Past 24 Hrs 10/12/18 10/12/18 10/12/18 00:02 00:02 01:30 WBC 25.4 H RBC 3.95 L Hgb 10.2 L Hct 32.7 L MCV 82.8 MCH 25.8 L MCHC 31.2 L RDW 16.3 H RDW Differential 48.2 H Plt Count 273 MPV 8.4 Immature Gran % (Auto) 0.400 Neut % (Auto) 88.3 H Lymph % (Auto) 3.8 L [place] % (Auto) 7.2 Eos % (Auto) 0.2 Baso % (Auto) 0.1 Absolute Neuts (auto) 22.4 H Absolute Lymphs (auto) 0.96 Total Counted Not Reportable Diff Path Review May foll Sodium 133 L Potassium 3.9 Chloride 96 L Carbon Dioxide 28.0 Anion Gap 9 BUN 10 Creatinine 0.67 L Estim Creat Clear Calc 69.10 Est GFR (MDRD) Af Amer 151 Est GFR (MDRD) Non-Af 124 BUN/Creatinine Ratio 15.0 Glucose 101 Lactic Acid Calcium 8.5 Total Bilirubin 0.60 AST 158 H ALT 81 H Alkaline Phosphatase 229 H Total Protein 6.6 Albumin 2.1 L Globulin 4.5 H Albumin/Globulin Ratio 0.5 L Urine Color Yellow Urine Clarity Sl. Cloudy Urine pH 6.5 Ur Specific [place] 1.010 Urine Protein 30 H Urine Glucose (UA) Normal Urine Ketones Negative Urine Occult Blood 150 H Urine Nitrite Negative Urine Bilirubin Negative Urine Urobilinogen Normal Ur Leukocyte Esterase 500 H Urine RBC 0-5 SEEN Urine WBC 10-25 SEEN Ur Squamous Epith Cells 0 SEEN Urine Bacteria RARE Urine Mucus 0 SEEN 10/12/18 01:53 WBC RBC Hgb Hct MCV MCH MCHC RDW RDW Differential Plt Count MPV Immature Gran % (Auto) Neut % (Auto) Lymph % (Auto) [place] % (Auto) Eos % (Auto) Baso % (Auto) Absolute Neuts (auto) Absolute Lymphs (auto) Total Counted Diff Path Review Sodium Potassium Chloride Carbon Dioxide Anion Gap BUN Creatinine Estim Creat Clear Calc Est GFR (MDRD) Af Amer Est GFR (MDRD) Non-Af BUN/Creatinine Ratio Glucose Lactic Acid 1.4 Calcium Total Bilirubin AST ALT Alkaline Phosphatase Total Protein Albumin Globulin Albumin/Globulin Ratio Urine Color Urine Clarity Urine pH Ur Specific [place] Urine Protein Urine Glucose (UA) Urine Ketones Urine Occult Blood Urine Nitrite Urine Bilirubin Urine Urobilinogen Ur Leukocyte Esterase Urine RBC Urine WBC Ur Squamous Epith Cells Urine Bacteria Urine Mucus Assessment/Plan All Active Problems Lower abdominal pelvic wall cellulitis (Acute) 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 Colon cancer with metastatic disease to liver?this has caused significant weakness and debility, will admit to general medical floor, will get physical therapy consult to assist with strengthening, will need to obtain records from [facility] regarding oncology treatment ongoing, add opiates for pain control and Zofran as needed for nausea. 2. UTI?continue Rocephin 1 g IV every 24 hours, repeat CBC BMP, IV normal saline at a rate of 75 cc/h 3. Hypertension?continue current routine medication 4. DVT prophylaxis?low molecular weight heparin 40 mg subcu daily Code Visit Inpatient E&M: [id number] Init Hosp L3
[2018-10-12] MEDS: Acetaminophen 325 MG Tablet 650 MG PO (06:44)
[2018-10-12] MEDS: 0.9% Normal Saline 1,000 ML 100 ML IV ×2 (06:46→15:49)
--- NOTE | 2018-10-12 10:30 | CASEMGMT ---
Assessment- SW completed assessment with patient and his . Patient deferred questioning to his . Living situation- Patient lives with his in a tri-level home. There are a few entry steps. PCP: None. They feel due to his poor medical condition they were just going to keep seeing his Oncologist. Declined list of PCP's. Specialists: Dr Hyacinth Georges-Oncologist through [facility] Pharmacy: [facility] DME: Cane, Walker, and wheelchair ADL's/IADL's: Patient uses his walker to get around. He gets help with medication set up, cleaning, cooking, and transportation. Past SNF/rehab: No Past HH: No LW: Yes. Patient aware not on file at [facility] POA: Yes. - Carmen Vega. Aware not on file at [facility] Patient is hoping to be transferred to [facility] where his Oncologist is located. Per patient's he has a nurse from [facility] that comes out. SW called [facility] and it turns out they are Palliative Care. A Nurse Practitioner comes out to his home to see him. They asked that SW fax d/c instructions to . They also asked that they be notified when patient is discharged . Plan: At this time patient would like transferred to [facility]. Not sure if this is the plan. Case Management following for d/c planning. Junie MCKINNEY
[2018-10-12] MEDS: Docusate Sodium 100 MG Capsule PO ×2 (10:51→21:04)
[2018-10-12] MEDS: Dronabinol 2.5 MG Capsule 5 MG PO ×2 (10:52→21:13)
[2018-10-12 14:03] LABS: Pathologist Review Reviewed
--- NOTE | 2018-10-12 15:47 | PCM.DC.SUM ---
Discharge Date and Diagnosis - Problem List Patient Problems: Active and Suspected Problems Colon cancer metastasized to liver (Acute) Date of Admission: 10/12/18 Date of Discharge: 10/13/18 - Primary Discharge Diagnosis Active and Suspected Problems Colon cancer metastasized to liver (Acute) - Secondary Discharge Diagnosis Chronic Problems Rectal prolapse (Chronic) Altered bowel habits (Chronic) Hypertension (Chronic) Undiagnosed Hospital Course and Treatment Summary of Care Provided: The patient is a 72 year-old gentleman with history of colon cancer status post colostomy with respect to contiguous structures prostate and rectum and wide metastasis to liver and admitted with generalized weakness and had chemotherapy about 3 weeks ago. Patient admitted with fall and generalized weakness. Patient has suprapubic catheter and colostomy for CA colon in June 2017 with suprapubic catheter placed. Colon cancer has infiltrated to the local contiguous structures the rectum and prostate and wide metastasis to liver. CT abdomen showed white liver metastasis with splenomegaly, ascites and anasarca. Diffuse abnormal thickening of wall of urinary bladder may be chronic changes from suprapubic catheter or acute cystitis. Patient had one-time fever 100.9 on day of admission otherwise afebrile during rest of hospital course. Patient also found to have leukocytosis 25,000 which improved to 9000, normal range. Urine culture shows 1000-10,000 presumptive Francine albicans. Antibiotic's have been discontinued. I talked to patient's oncologist Dr. Georges on 10/12/18 and she said the recent CT abdomen in [facility] also showed liver metastasis. Blood cultures x2 are negative for more than 48 hours. Her oncologist said patient had similar UA picture of mild pyuria and was treated with antibiotic prior to chemotherapy. This may be a symptomatic bacteriuria in view of suprapubic catheter. Clinical updates were given to the patient and patient's . Other comorbidities include hypertension which is stable. Transfer line was called for [facility] but they do not have bed earlier but bed just opened up today on 10/13. Total time spent, exact 35 minutes on exchange of clinical information with transfer line and oncologist Dr. Georges, review of imaging and blood test and discussion with the patient and his . Patient is being transferred to [facility] for further care and management Clinical Impression(s) from Imaging Studies Chest X-Ray 10/11/18 23:46 IMPRESSION: No radiographic evidence of acute cardiopulmonary disease. Abdomen/Pelvis CT 10/12/18 02:39 IMPRESSION: 1. Multiple liver masses, new since the previous study likely representing metastasis. 2. Diffuse abnormal thickening of the esquivel of the urinary bladder may be treatment related or related to acute or chronic cystitis. 3. A large rectal and perianal mass. 4. Ascites. 5. Anasarca. 6. Splenomegaly. Microbiology Past 72 Hours 10/12/18 01:30 Urine Catheter - Macias Urine Culture - Final Presumptive C albicans Laboratory Results 10/13/18 05:30: WBC 9.0, RBC 3.86 L, Hgb 11.3 L, Hct 35.2 L, MCV 91.2, MCH 29.3, MCHC 32.1, RDW 14.1, RDW Differential 46.4 H, Plt Count 179, MPV 11.5, Immature Gran % (Auto) 0.400, Neut % (Auto) 84.5 H, Lymph % (Auto) 9.5 L, [place] % (Auto) 5.6, Eos % (Auto) 0.0, Baso % (Auto) 0.0, Absolute Neuts (auto) 7.6, Absolute Lymphs (auto) 0.86, Total Counted Not Reportable 10/13/18 05:30: Sodium 142, Potassium 4.9, Chloride 107, Carbon Dioxide 27.0, Anion Gap 8, BUN 23 H, Creatinine 0.65 L, Estim Creat Clear Calc 66.99, Est GFR (MDRD) Af Amer 155, Est GFR (MDRD) Non-Af 128, BUN/Creatinine Ratio 35.4 H, Glucose 144 H, Calcium 8.7, Magnesium 2.2 Patient Problems: Active and Suspected Problems Colon cancer metastasized to liver (Acute) Subjective: Seen and examined. Patient is lethargic and emaciated. Very tired. No acute complaint. Leukocytosis resolved. Waiting for bed to open and [facility]. - Physical Exam General: Alert, Oriented x3, Cooperative, Lethargic, - - Seated HEENT: Atraumatic, PERRLA, EOMI, Normocephalic Neck: Supple, No JVD, Negative Carotid Bruits Lungs: Clear to auscultation, No wheeze, No rales, Diminished Cardiovascular: Regular rate, Regular Rhythm, Normal S1, Normal S2, No murmurs Abdomen: Bowel Sounds Present, Soft, Non Tender, Non-Distended, Hepatomegaly Extremities: No edema, Capillary Refill Less than 3 Seconds Skin: No rashes, No breakdown Musculoskeletal: No Tenderness to Palpation of Joints or Extremities, Arthritic Changes, Cachexia, Muscle Wasting Neurological: Cranial nerves II-XII grossly intact, Deep Tendon Reflexes 2+/4 and Symmetrical, Neuro grossly intact Psych/Mental Status: Normal Affect, Appropriate Vital Signs Temp Pulse Resp BP Pulse Ox 98 F 83 18 125/58 H 97 10/12/18 13:10 10/12/18 13:10 10/12/18 13:10 10/12/18 13:10 10/12/18 13:10 Oxygen Delivery Method Room Air Weight: 154 lb 1.65 oz Body Mass Index (BMI) 22.1 Intake and Output for Last 24 Hours 10/10/18 10/11/18 10/12/18 23:59 23:59 23:59 Output Total 550 / 550 Balance -550 / -550 Laboratory Tests Past 24 Hrs 10/12/18 10/12/18 10/12/18 00:02 00:02 01:30 WBC 25.4 H RBC 3.95 L Hgb 10.2 L Hct 32.7 L MCV 82.8 MCH 25.8 L MCHC 31.2 L RDW 16.3 H RDW Differential 48.2 H Plt Count 273 MPV 8.4 Immature Gran % (Auto) 0.400 Neut % (Auto) 88.3 H Lymph % (Auto) 3.8 L [place] % (Auto) 7.2 Eos % (Auto) 0.2 Baso % (Auto) 0.1 Absolute Neuts (auto) 22.4 H Absolute Lymphs (auto) 0.96 Total Counted Not Reportable Diff Path Review Reviewed Sodium 133 L Potassium 3.9 Chloride 96 L Carbon Dioxide 28.0 Anion Gap 9 BUN 10 Creatinine 0.67 L Estim Creat Clear Calc 69.10 Est GFR (MDRD) Af Amer 151 Est GFR (MDRD) Non-Af 124 BUN/Creatinine Ratio 15.0 Glucose 101 Lactic Acid Calcium 8.5 Total Bilirubin 0.60 AST 158 H ALT 81 H Alkaline Phosphatase 229 H Total Protein 6.6 Albumin 2.1 L Globulin 4.5 H Albumin/Globulin Ratio 0.5 L Urine Color Yellow Urine Clarity Sl. Cloudy Urine pH 6.5 Ur Specific [place] 1.010 Urine Protein 30 H Urine Glucose (UA) Normal Urine Ketones Negative Urine Occult Blood 150 H Urine Nitrite Negative Urine Bilirubin Negative Urine Urobilinogen Normal Ur Leukocyte Esterase 500 H Urine RBC 0-5 SEEN Urine WBC 10-25 SEEN Ur Squamous Epith Cells 0 SEEN Urine Bacteria RARE Urine Mucus 0 SEEN 10/12/18 01:53 WBC RBC Hgb Hct MCV MCH MCHC RDW RDW Differential Plt Count MPV Immature Gran % (Auto) Neut % (Auto) Lymph % (Auto) [place] % (Auto) Eos % (Auto) Baso % (Auto) Absolute Neuts (auto) Absolute Lymphs (auto) Total Counted Diff Path Review Sodium Potassium Chloride Carbon Dioxide Anion Gap BUN Creatinine Estim Creat Clear Calc Est GFR (MDRD) Af Amer Est GFR (MDRD) Non-Af BUN/Creatinine Ratio Glucose Lactic Acid 1.4 Calcium Total Bilirubin AST ALT Alkaline Phosphatase Total Protein Albumin Globulin Albumin/Globulin Ratio Urine Color Urine Clarity Urine pH Ur Specific [place] Urine Protein Urine Glucose (UA) Urine Ketones Urine Occult Blood Urine Nitrite Urine Bilirubin Urine Urobilinogen Ur Leukocyte Esterase Urine RBC Urine WBC Ur Squamous Epith Cells Urine Bacteria Urine Mucus Home Medications: Medications to take at Discharge Docusate Sodium [Colace] 100 mg PO BID 10/11/18 Dronabinol 5 mg PO BID 10/11/18 Oxycodone HCl 10 mg PO Q6H PRN PRN 10/11/18 Tamsulosin HCl [Flomax] 0.4 mg PO QHS 10/11/18 Gabapentin [Neurontin] 300 mg PO TID 10/13/18 Primary Care Physician: Care Physician,No Primary [NON-STAFF] - Medical Necessity - Tobacco Use Smoking Status: Former smoker Meaningful Use Info Meaningful Use Diagnoses (Choose all that apply): None applicable Code Visit Inpatient E&M: 16099 Disch Hosp
--- NOTE | 2018-10-12 16:53 | CCHN_ITS ---
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 He has been feeling weakness after chemotherapy for last 2 to 3 weeks. Last chemo 3 weeks ago patient was admitted with fall. Found to have leukocytosis to 5000 with left shift. Patient has suprapubic catheter and colostomy after colectomy for CA colon. She was diagnosed and had colectomy with suprapubic catheter in June 2017. He also had associated rectal cancer which infiltrated prostate. I talked to patient's oncologist Dr. Georges and she said the recent CT abdomen in [facility] also showed liver metastasis. CT abdomen done here shows white liver metastasis with splenomegaly, ascites and anasarca. Diffuse abnormal thickening of wall of urinary bladder may be chronic changes from suprapubic catheter or acute cystitis. Empirically, on IV ceftriaxone. Blood cultures x2 and urine culture are pending. Patient had one-time fever 100.9 last night otherwise afebrile during daytime. Her oncologist said patient had similar UA picture of mild pyuria and was treated with antibiotic prior to chemotherapy. This may be a symptomatic bacteriuria in view of suprapubic catheter. Was updated to the patient and patient's . Transfer line was called for [facility] but they do not have bed. Patient might go during nighttime under hospitalist service and oncologist agreed to see him there. Clinical Impression(s) from Imaging Studies Chest X-Ray 10/11/18 23:46 IMPRESSION: No radiographic evidence of acute cardiopulmonary disease. Abdomen/Pelvis CT 10/12/18 02:39 IMPRESSION: 1. Multiple liver masses, new since the previous study likely representing metastasis. 2. Diffuse abnormal thickening of the esquivel of the urinary bladder may be treatment related or related to acute or chronic cystitis. 3. A large rectal and perianal mass. 4. Ascites. 5. Anasarca. 6. Splenomegaly. Electronically Signed: Danna Seymour MD at 4:11 EDT , Service support ,
--- NOTE | 2018-10-12 17:31 | NURSING ---
PT AND AWARE THAT DR COTA DID GET A RETURN CALL FROM DR ROTH AND SHE WILL SEE PT WHENEVER PT IS ABLE TO BE TRANSF[place] [facility]
[2018-10-12] MEDS: Tamsulosin HCl 0.4 MG Capsule PO (21:04)
[2018-10-13] MEDS: 0.9% Normal Saline 1,000 ML 100 ML IV ×2 (02:14→12:03)
[2018-10-13 03:00] VITALS: BP 133/71; PULSE 102; RESP 18; TEMP 36.9; O2SAT 93
[2018-10-13] MEDS: oxyCODONE 5 MG Tablet 10 MG PO ×3 (03:04→17:09)
[2018-10-13 06:06] LABS: Absolute Lymphocyte Count 0.86 X10^3/ul (0.83-4.51); Absolute Neutrophil Count 7.6 X10^3/uL (2.0-7.7); Hematocrit 35.2 % (40-54); Hemoglobin 11.3 g/dl (13.0-16.5); Lymphocyte # 0.86 X10^3/ul (4.0); Lymphocyte % 9.5 % (19-41); Mean Corp Hgb Conc 32.1 g/gl (32-36); Mean Corpuscular Hgb 29.3 pg (27.0-32.0); Mean Corpuscular Volume 91.2 fL (80-94); Mean Platelet Vol. 11.5 fl (6.2-12.0); Monocyte# 0.51 X10^3/uL; Monocyte% 5.6 % (0-10); Neutrophil # 7.62 X10^3/uL (2.7-7.7); Neutrophil % 84.5 % (47-70); Platelet Count 179 K/mm3 (150-450); RBC Distribution Width CV 14.1 % (11.6-14.6); RBC Distribution Width SD 46.4 fl (35.1-43.9); Red Blood Count 3.86 M/mm3 (4.6-6.2)
[2018-10-13 06:07] LABS: POSITIVE COUNT NO; POSITIVE DIFFERENTIAL NO; POSITIVE MORPHOLOGY NO
[2018-10-13 06:15] LABS: Anion Gap 8 (5-15); BUN 23 mg/dL (7-18); BUN/Creat Ratio 35.4 RATIO (10-20); Calcium,Total 8.7 mg/dL (8.5-10.1); Chloride 107 mmol/L (98-107); Creatinine, Serum 0.65 mg/dL (0.70-1.30); EST Glomerular Filtration Rate 128 mL/min (>60); Est Glom Filt Rate - Afr Amer 155 mL/min (>60); Estimated Creatinine Clearance 66.99 ml/min; Glucose 144 mg/dL (74-106); Magnesium 2.2 mg/dL (1.6-2.6); Potassium 4.9 mmol/L (3.5-5.1); Sodium Level 142 mmol/L (136-145)
[2018-10-13] MEDS: Morphine 4 MG/ML Syringe IV ×2 (08:44→14:56)
[2018-10-13 09:00] VITALS: BP 145/61; PULSE 94; RESP 18; TEMP 36.7; O2SAT 96
[2018-10-13] MEDS: Dronabinol 2.5 MG Capsule 5 MG PO (09:17)
[2018-10-13] MEDS: Docusate Sodium 100 MG Capsule PO (09:17)
[2018-10-13] MEDS: Gabapentin 300 MG Capsule PO ×2 (12:03→17:09)
--- NOTE | 2018-10-13 13:03 | NURSING ---
wound photo: [email or web address]
[2018-10-13 15:00] VITALS: BP 136/65; PULSE 95; RESP 16; TEMP 36.7; O2SAT 96
--- NOTE | 2018-10-13 16:31 | PCM.PN.HOSP ---
Patient Problems: Active and Suspected Problems Colon cancer metastasized to liver (Acute) Subjective: Patient is waiting for the bed for transfer to [facility]. Hospital updates course has been given to transfer line coordinator and to the oncologist Dr. Reid. Vitals/I&O's: Vital Signs Temp Pulse Resp BP Pulse Ox 98.0 F 95 16 136/65 H 96 10/13/18 15:00 10/13/18 15:00 10/13/18 15:00 10/13/18 15:00 10/13/18 15:00 Oxygen Delivery Method Room Air Weight: 154 lb 1.65 oz Body Mass Index (BMI) 22.1 Intake and Output for Last 24 Hours 10/11/18 10/12/18 10/13/18 23:59 23:59 23:59 Intake Total 1936 / 1936 1527 / 1527 Output Total 1450 / 1450 975 / 975 Balance 486 / 486 552 / 552 General: Alert, Oriented x3, Cooperative, Lethargic, - - emaciated HEENT: Atraumatic, PERRLA, EOMI, Normocephalic Oral: Dry Mucosa Neck: Supple, No JVD, Negative Carotid Bruits Lungs: Clear to auscultation, Diminished Cardiovascular: Regular rate, Regular Rhythm, Normal S1, No murmurs Abdomen: Bowel Sounds Present, Soft, Non Tender Extremities: No edema, Capillary Refill Less than 3 Seconds Skin: No rashes, No breakdown Musculoskeletal: No Tenderness to Palpation of Joints or Extremities, Cachexia, Muscle Wasting Lymphatic: No Cervical, Supraclavicular, or Inguinal Adenopathy Neurological: Cranial nerves II-XII grossly intact, Deep Tendon Reflexes 2+/4 and Symmetrical, Neuro grossly intact Psych/Mental Status: Normal Affect, Appropriate Microbiology Past 72 Hours 10/12/18 01:30 Urine Catheter - [place]ias Urine Culture - Final Presumptive C albicans Laboratory Results 10/13/18 05:30: WBC 9.0, RBC 3.86 L, Hgb 11.3 L, Hct 35.2 L, MCV 91.2, MCH 29.3, MCHC 32.1, RDW 14.1, RDW Differential 46.4 H, Plt Count 179, MPV 11.5, Immature Gran % (Auto) 0.400, Neut % (Auto) 84.5 H, Lymph % (Auto) 9.5 L, [place] % (Auto) 5.6, Eos % (Auto) 0.0, Baso % (Auto) 0.0, Absolute Neuts (auto) 7.6, Absolute Lymphs (auto) 0.86, Total Counted Not Reportable 10/13/18 05:30: Sodium 142, Potassium 4.9, Chloride 107, Carbon Dioxide 27.0, Anion Gap 8, BUN 23 H, Creatinine 0.65 L, Estim Creat Clear Calc 66.99, Est GFR (MDRD) Af Amer 155, Est GFR (MDRD) Non-Af 128, BUN/Creatinine Ratio 35.4 H, Glucose 144 H, Calcium 8.7, Magnesium 2.2 Current Medications Acetaminophen (Tylenol) 650 mg PO Q6H PRN PRN PRN Reason: Mild Pain (1-3)/Temp > 100.7 F Last Admin: 10/12/18 06:44 Dose: 650 mg Documented by: Calamine/Phenol (Calmoseptine Ointment) 1 applic TOPICAL BID [facility]; Protocol Docusate Sodium (Colace) 100 mg PO BID [facility] Last Admin: 10/13/18 09:17 Dose: 100 mg Documented by: Dronabinol (Marinol) 5 mg PO BID [facility] Last Admin: 10/13/18 09:17 Dose: 5 mg Documented by: Gabapentin (Neurontin) 300 mg PO TIDCM [facility] Last Admin: 10/13/18 12:03 Dose: 300 mg Documented by: Sodium Chloride () 1,000 mls @ 100 mls/hr IV .Q10H [facility] Last Admin: 10/13/18 12:03 Dose: 100 mls/hr Documented by: Ceftriaxone Sodium (Rocephin) 1 gm in 50 mls @ 100 mls/hr IV Q24@2200 [facility] Last Admin: 10/12/18 21:04 Dose: 100 mls/hr Documented by: Sodium Chloride () 250 mls @ 15 mls/hr IV .[id number] PRN PRN Reason: SALINE FLUSH Morphine Sulfate () 4 mg IV Q3H PRN PRN PRN Reason: Severe pain (7-10/10) Last Admin: 10/13/18 14:56 Dose: 4 mg Documented by: Nutritional Formula (Lactose Free) (Ensure Enlive) 120 ml PO 4X/DAY [facility] Last Admin: 10/13/18 14:56 Dose: 120 ml Documented by: Ondansetron HCl (Zofran) 4 mg IV Q8H PRN PRN PRN Reason: NAUSEA/VOMITING Oxycodone HCl (Oxyir) 10 mg PO Q6H PRN PRN PRN Reason: PAIN Last Admin: 10/13/18 12:03 Dose: 10 mg Documented by: Sodium Chloride () 5 - 15 ml IV UD PRN PRN Reason: SALINE FLUSH Tamsulosin HCl (Flomax) 0.4 mg PO QHS [facility] Last Admin: 10/12/18 21:04 Dose: 0.4 mg Documented by: Medical Necessity - Tobacco Use Smoking Status: Former smoker Assessment/Plan All Active Problems Lower abdominal pelvic wall cellulitis (Acute) 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
--- NOTE | 2018-10-13 16:45 | NURSING ---
called report to Sol @ [facility] [phone]. Transport to be here @ 8752 for pt & take to bed [id number]
--- NOTE | 2018-10-13 17:10 | NURSING ---
OXYCODONE GIVEN EARLY BY PERMISSION OF DR COTA FOR PAIN TREATMENT FOR TRANSPORT. SEE PHYSICIAN NOTIFICATION.
== END 2018-10-13 17:47 | disposition short-term general hospital (02) | DRG 375 ==
LOC: ED 10-12 02:39 → PCU 10-12 06:39
PROVIDERS: Emergency Medicine; Admitting Provider Family Medicine; Emergency Provider Emergency Medicine; Visit Provider Internal Medicine
DX: C18.9 Malignant neoplasm of colon, unspecified (principal); C78.7 Secondary malignant neoplasm of liver and intrahepatic bile duct; C78.5 Secondary malignant neoplasm of large intestine and rectum; C79.82 Secondary malignant neoplasm of genital organs; R64 Cachexia; S81.011A Laceration without foreign body, right knee, initial encounter; S51.011A Laceration without foreign body of right elbow, initial encounter; S51.811A Laceration without foreign body of right forearm, initial encounter; W01.0XXA Fall on same level from slipping, tripping and stumbling without subsequent striking against object, initial encounter; Y92.012 Bathroom of single-family (private) house as the place of occurrence of the external cause; Z93.3 Colostomy status; Z90.49 Acquired absence of other specified parts of digestive tract; I10 Essential (primary) hypertension; Z79.899 Other long term (current) drug therapy; Z68.22 Body mass index [BMI] 22.0-22.9, adult; Z87.891 Personal history of nicotine dependence
CPT/HCPCS: 36415; 71045; 74177; 80048; 80053; 81001; 83605; 83735; 85025; 87040; 87086; 87088; 99285; J7030; Q9967; A4216